=== PATIENT | male | born 1995 | race Caucasian/White ===

== ENCOUNTER 2017-10-21 10:12 | Emergency (ER) | payer BC ==
[2017-10-21 11:04] VITALS: PULSE 76; RESP 16; TEMP 98.4
[2017-10-21] MEDS ORDERED: DEXAMETHASONE 4 MG TAB PO ONE (11:12)
--- NOTE | 2017-10-21 11:12 | EDPHY ---
General Narrative: CHIEF COMPLAINT: Cough HISTORY OF PRESENT ILLNESS: Patient complains of cough of 1 week duration. Gradual onset. Constant duration. Rated as severe. Difficulty sleeping at because of this. No fever. No neck pain or stiffness. No headache. No nausea vomiting. No body aches or joint pains. The cough has been productive at times and now dry. No abdominal urinary complaints. No rash. No other associated complaints or modifying factors. REVIEW OF SYSTEMS: Ten systems reviewed and are negative unless otherwise noted in the HPI PCP: Dr. Quiles SPECIALISTS: None PAST MEDICAL HISTORY: None PAST SURGICAL HISTORY: None SOCIAL HISTORY: Occasional marijuana use. No tobacco or alcohol use. Works at [email or web address]. [employer] student. FAMILY HISTORY: Noncontributory EXAMINATION General Appearance: Alert, no distress, texting on his phone Head: normocephalic, atraumatic Eyes: Pupils equal and round, no conjunctival pallor or injection ENT, Mouth: Mucous membranes moist. Airway is widely patent. No erythema or edema. Neck: Normal inspection, supple, non-tender. No rigidity or meningismus. Respiratory: Scattered rhonchi. No wheezing. No crackles. No diminishment or consolidation. No retractions or distress. Cardiovascular: Regular rate and rhythm. No murmur Gastrointestinal: Abdomen is soft and nontender Back: non-tender, no bony abnormalities Neurological: A&O, nonfocal, normal gait Skin: Warm and dry, no rash. No petechiae or purpura Extremities: Nontender, no pedal edema Psychiatric: Mood and affect normal DIFFERENTIAL DIAGNOSES: Including but not limited to acute bronchitis, viral bronchitis, bacterial bronchitis, community-acquired pneumonia MDM: 11:10 a.m. Cough with examination that suggest bronchitis more so than pneumonia. His vital signs were well within normal limits. He has rhonchi but no wheezing, crackles or diminishment. He is in no acute distress. He does not require supplemental oxygen. I do feel that he is stable for discharge with empiric coverage for the possibility of bacterial bronchitis versus community-acquired pneumonia. I do not feel he warrants chest x-ray at this time, nor does the patient want me to order this. We discussed symptomatic medications in addition to the prescription medications. We discussed strict ED precautions for worsening symptoms, chest pain, shortness of breath or increasing heart rate. We discussed follow up with his established primary care physician. He is comfortable this plan and discharged in stable condition. SUPERVISION: This patient was independently evaluated without direct involvement of or examination by the attending physician. - History Smoking Status: Never smoked - Objective Vital Signs: Initial Vital Signs Temperature (C) 96.8 F 10/21/17 10:56 Heart Rate 77 10/21/17 10:56 Respiratory Rate 18 10/21/17 10:56 Blood Pressure 124/78 H 10/21/17 10:56 O2 Sat (%) 98 10/21/17 10:56 O2 Delivery Mode Room Air Allergies/Adverse Reactions: No Known Allergies Allergy (Verified 11/26/13 12:55) Home Medications: Medication Instructions Recorded Acetaminophen/Codeine 300/30Mg 1 each PO Q6 PRN #7 tab 10/21/17 [Tylenol #3 (*)] Albuterol [Proventil Inhaler HFA 1 - 2 puffs IH Q4H PRN #1 mdi 10/21/17 (*)] Azithromycin [Zithromax] 250 mg PO DAILY #6 tab 10/21/17 Dexamethasone [Decadron 4 MG (*)] 8 mg PO DAILY #2 tab 10/21/17 Medications Given: Discontinued Medications Dexamethasone (Decadron) 8 mg PO EDNOW ONE Stop: 10/21/17 11:13 Last Admin: 10/21/17 11:33 Dose: 8 mg Departure - Departure Disposition: Home, Routine, Self-Care Clinical Impression: Acute bronchitis Qualifiers: Bronchitis organism: unspecified organism Qualified Code(s): J20.9 - Acute bronchitis, unspecified Condition: Good Instructions: Acute Bronchitis (ED) Additional Instructions: 1. Medications as prescribed to completion 2. [id number] anti-inflammatories as discussed for 5-7 days 3. Increase fluid intake 4. Follow up outpatient with primary care physician 5. ED precautions as discussed Referrals: Chinyere Quiles MD [Primary Care Provider] - As per Instructions Stand Alone Forms: School Excuse Prescriptions: Acetaminophen/Codeine 300/30Mg [Tylenol #3 (*)] 1 each PO Q6 PRN #7 tab PRN Reason: Cough, Mild Albuterol [Proventil Inhaler HFA (*)] 1 - 2 puffs IH Q4H PRN #1 mdi PRN Reason: Short Of Breath/Dyspnea Azithromycin [Zithromax] 250 mg PO DAILY #6 tab Dexamethasone [Decadron 4 MG (*)] 8 mg PO DAILY #2 tab
[2017-10-21 11:38] VITALS: BP 130/86; O2SAT 97
== END 2017-10-21 11:38 | disposition home or self-care (01) ==
DX: J20.9 Acute bronchitis, unspecified (principal)

== ENCOUNTER 2019-03-24 23:20 | Emergency (ER) | payer BC ==
--- NOTE | 2019-03-25 00:32 | EDPHY ---
General Time Seen by Provider: 03/25/19 00:23 Narrative: CLINICAL IMPRESSION: Pharyngitis, viral URI ASSESSMENT/PLAN: 23-year-old male presents to the emergency department several hours of sore throat, myalgias and subjective fever. Mother became concerned that he was complaining of headache and neck pain and came to the emergency department. Patient's vitals on arrival are stable, afebrile, no tachycardia or respiratory distress. He is able to get on and off the bed without distress, moves his neck in all directions and has no meningeal findings. I do not suspect meningitis in this patient. No evidence to suggest exudative tonsillitis, retropharyngeal abscess, peritonsillar abscess, uvulitis, stomatitis, or lower respiratory disease. Rapid strep negative. Patient refused ibuprofen and Tylenol. Home care discussed, PCP follow-up encouraged, warning signs for return to ED sooner discussed discharge. DIFFERENTIAL DX: Differential includes but not limited to viral pharyngitis, strep tonsillitis, viral URI ED PROCEDURES: See lab and/or imaging results below CHIEF COMPLAINT: Sore throat, myalgias HPI: 23-year-old otherwise healthy male presents to the emergency department with his mother for concerns of "several hours" of sore throat, body aches and generally feeling unwell. No recent travel or ill exposures. 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 He does not smoke cigarettes. He reports tactile fevers and sore throat. He is tolerating his secretions. He is able to eat and drink. No associated nausea vomiting or diarrhea. No rash. He did not take ibuprofen or Tylenol because "I do not like things like that". He does not want anything here. PAST MEDICAL HISTORY: No significant past medical or surgical history, nonsmoker See triage summary and nurse notes for addition applicable history REVIEW OF SYSTEMS: A full 10 point review of systems was negative except for those mentioned in HPI. PHYSICAL EXAM: General Appearance: Alert, oriented, appropriate, cooperative, NAD, well hydrated, non-toxic appearing, VSS, no hypoxia. HEENT: TMs are clear bilaterally no perforation or FB, no injection, no evidence of serous or mucopurulent otitis. Oropharynx clear mild erythema no exudates, no tonsillar hypertrophy or asymmetry. Dentition without abnormality. Eyes: PERRLA, no acute vision change, nystagmus, swelling, discharge, pain or photosensitivity. Conjunctiva pink, no pallor or injection Neck: Supple, nontender, no lymphadenopathy, no midline pain, FROM, no meningismus. Respiratory: There are no retractions, lungs are clear to auscultation. Cardiac: Regular rate and rhythm, no murmurs or gallops. Gastrointestinal: Abdomen is soft, nontender, bowel sounds normal, no masses/ hernia, no rigidity, guarding or focal peritoneal findings. Skin: Warm, dry, no rashes, no nodules on palpation. MEDICAL DECISION MAKING: Patient was seen independently. Secondary supervising physician at time of evaluation was: Dr. Rowland . Diagnosis: Pharyngitis, viral URI. New, requires workup Summary: See Assessment and Plan for summary of ED visit Patient Progress: Stable for discharge. - History Smoking Status: Light smoker - Objective Vital Signs: Initial Vital Signs Temperature (C) 37.4 C 03/24/19 23:23 Heart Rate 84 03/24/19 23:23 Respiratory Rate 18 03/24/19 23:23 Blood Pressure 103/52 L 03/24/19 23:23 O2 Sat (%) 98 03/24/19 23:23 Allergies/Adverse Reactions: No Known Allergies Allergy (Verified 03/24/19 23:25) Laboratory Results: 03/25/19 00:12 Group A Strep Screen Pending Departure - Departure Disposition: Home, Routine, Self-Care Clinical Impression: Acute viral pharyngitis Condition: Good Instructions: Pharyngitis (ED) Additional Instructions: DISCHARGE INSTRUCTIONS FROM YOUR DOCTOR Thank you for visiting our emergency department today. You were treated by a physician hygiene assistant today and your case was reviewed with our ED Attending physician. Please keep in mind that discharge from the emergency department does not mean that there is nothing wrong - it simply means that we have not identified an emergency condition that requires further evaluation or treatment in the hospital. You should always plan to follow up with primary care for re- evaluation of your condition in the next 2-3 days. If you have been referred to a specialist, please call as soon as possible (today or tomorrow) to schedule your follow up appointment at the appropriate time. RAPID STREP TEST WAS NEGATIVE. A THROAT CULTURE IS PENDING, WE WILL ONLY CALL YOU IF THIS IS POSITIVE AFTER 3-4 DAYS. YOU LIKELY HAVE A VIRAL INFECTION. WE DO NOT SUSPECT TO HAVE MENINGITIS. PLEASE FOLLOW-UP WITH A PRIMARY CARE DOCTOR. PLEASE CONSIDER USING TYLENOL OR IBUPROFEN FOR FEVER AND BODY ACHES. RETURN TO THE EMERGENCY DEPARTMENT SOONER FOR WORSENING THROAT PAIN, INABILITY TO SWALLOW YOUR OWN SALIVA, HIGH FEVERS, NECK STIFFNESS, SEVERE HEADACHES, LIGHT SENSITIVITY RASH, OR ANY OTHER CONCERN. People present with illnesses and injuries in different ways, and it is always possible that we have missed something. You may always return for re-evaluation if symptoms worsen or if they are not improving or if you develop new/different symptoms. Again, thank you for choosing our emergency department. We hope that you feel better. Referrals: BALDOMERO CHAHAL [Primary Care Provider] - 1-2 days without fail
[2019-03-25 00:48] VITALS: BP 106/58
[2019-03-25 10:44] LABS: GROUP A STREP DNA (THROAT) POSITIVE (NEGATIVE)
== END 2019-03-25 00:48 | disposition home or self-care (01) ==
DX: J02.9 Acute pharyngitis, unspecified (principal); M79.10 Myalgia, unspecified site; R50.9 Fever, unspecified; R51 Headache